=== PATIENT | male | born 1960 | race Caucasian/White ===

== ENCOUNTER 2018-07-29 05:37 | Day surgery (SDC) | payer OTHER, MEDICAID ==
[2018-07-29] VITALS (12 sets, daily range): BP systolic 97–120; BP diastolic 43–77; BMI 27.9
[~2018-07-29 05:37] MED LIST: AMOXICILLIN500 M1 PO; CLARITHROMYCIN PO; CYMBALTA60 MG PO; ENABLEX15 MG PO; HYDROCODON-ACE1 EA10 PO; PERCOCET 10-321 EAC1 PO; PREDNISONE10 MG PO; VIBRAMYCIN 100100 MG PO
[2018-07-29] MEDS ORDERED: TRAZODONE HCL150 MG PO (06:52)
[2018-07-29] MEDS ORDERED: DOXYCYCLINE HY100 M2 PO (06:54)
[2018-07-30] VITALS: BP 119/59
[2018-07-30 04:00] VITALS: BP 102/56
--- NOTE | 2018-07-30 07:54 | NUR ---
PT ALERT X 4. BREATH SOUNDS CLEAR BILAT. INCISION TO LEFT SIDE OF NECK. IV TO LEFT HAND, PATENT, DRESSING CDI. PT SITTING UP IN CHAIR. REPORTING PAIN OF 8/10. FAMILY AT BEDSIDE. BED LOW, CALL LIGHT IN REACH. NO OTHER NEEDS AT THIS TIME.
[2018-07-30 09:13] VITALS: BP 95/52
--- NOTE | 2018-07-30 13:04 | OP ---
PATIENT NAME: AURORA COSTELLO MEDICAL RECORD: [id number] :60 LOCATION:[id number] ADMISSION DATE: SURGEON: GOLDEN AGUILAR MD DATE OF OPERATION: 07/29/2018 DATE OF SERVICE: 07/29/2018 PREOPERATIVE DIAGNOSES: Cervical myelopathy at C4-5 secondary to disc herniation and osteophyte formation. POSTOPERATIVE DIAGNOSES: Cervical myelopathy at C4-C5 secondary to disc herniation and osteophyte formation. SURGEON: Golden Aguilar MD PRIMARY CARE PHYSICIAN: David Wilder MD PROCEDURES: Anterior cervical discectomy and fusion with removal of osteophytes and decompression of spinal cord at C4-C5. Zavation anterior cervical plate and screws. Lillie bone stem cells. PEEK interbody cage. Separate anterior cervical plate and screws from Zavation instrumentation. DESCRIPTION AND TECHNIQUE: After induction of general endotracheal anesthesia, the patient was positioned supine on the operating table. Neck was prepped and draped in the usual sterile fashion. Fluoroscopic x-ray and freer localized the C4-C5 interspace. After infiltration of 1:100,000 epinephrine with 1% lidocaine, transverse skin incision was carried out from the midline to the sternocleidomastoid muscle. The platysma was divided with Bovie cautery, and then using blunt and sharp dissection with Metzenbaum scissors, I proceeded in an avascular plane medial to the carotid sheath. The C4-C5 interspace was identified with fluoroscopic x-ray and a spinal needle. Longus colli muscles were elevated from bodies of C4 and C5. A self-retaining retractor was placed deep in longus colli muscles. [place] distracting pins were placed by the C4 and C5. The C4-C5 interspace was incised under distraction. The disc material was removed with pituitary rongeurs and curettes. Posteriorly, using a microscope and the Midas Russell drill, osteophytes were drilled away. The posterior longitudinal ligament was removed with Cloward rongeurs. Following this, the dura was decompressed well. A separate PEEK interbody cage was placed in the disc space under distraction. Prior to this, it was filled with Lillie bone stem cells. A separate anterior cervical plate and screws was used to span the C4-C5 interspace. Self-drilling screws were placed through the holes in the plate. Locking cams were tightened down over the screw heads. The wound was irrigated with copious amounts of Ancef irrigant solution. The platysma and subdermal layer was closed with interrupted 3-0 Vicryl suture. The skin was reapproximated with Steri-Strips and benzoin. A sterile dressing was applied to the wound. The patient was awakened in good condition and taken to recovery. All counts were reported as correct. Estimated blood loss was minimal. TRANSINT:[id number] Voice Confirmation ID: [id number] DOCUMENT ID: [id number] OPERATIVE REPORT [id number] AURORA COSTELLO JOHN MD at 1304 CC: [id number] DICTATION DATE: 07/29/18 1431 ERECTING ENGINEER: 07/29/18 1721 [facility] [address] [place] [address]
[2018-07-30 14:18] VITALS: BP 110/71
[2018-07-30] MEDS ORDERED: MEDROL DOSE PACK4 MG PO (15:27)
--- NOTE | 2018-07-30 16:10 | NUR ---
DISCHARGE PAPERWORK SIGNED, ALL QUESTIONS ANSWERED. IV TO LEFT HAND DC'D, TIP INTACT. TAKEN OUT BY WHEELCHAIR.
== END 2018-07-30 16:11 | disposition home or self-care (01) ==
LOC: D.OPS 05:37 → D.MS 05:37 → D.OPS 07:30 → D.PAN 07:30 → D.MS 11:12 → D.OPS 07-30 16:11
PROVIDERS: ATTEND Neurological Surgery
DX: M50.021 Cervical disc disorder at C4-C5 level with myelopathy (principal); M25.78 Osteophyte, vertebrae; Z01.812 Encounter for preprocedural laboratory examination

== ENCOUNTER 2018-08-15 16:42 | Emergency (ER) | payer OTHER, MEDICAID ==
[~2018-08-15] VITALS: Ht 175.3 cm; Wt 84.1 kg
[~2018-08-15 16:42] MED LIST changes: +DOXYCYCLINE HY100 M2 PO; +MEDROL DOSE PACK4 MG PO; +TRAZODONE HCL150 MG PO
[2018-08-15 16:46] VITALS: Ht 175.3 cm; Wt 84.1 kg
[2018-08-15] MEDS ORDERED: PERCOCET 10-321 EAC1 PO (16:49)
[2018-08-15] MEDS ORDERED: ZANAFLEX4 MG PO (16:49)
[2018-08-15 17:22] LABS: BASOPHILS 0.7 % (0-2); EOSINOPHILS 2.2 % (0-7); HEMATOCRIT 36.1 % (42.0-54.0); HEMOGLOBIN 12.2 g/dL (13.5-17.5); IMMATURE GRANULOCYTES 0.4 % (0-5); LYMPHOCYTES 30.1 % (15-50); MCH 33.6 pg (26.0-34.0); MCHC 33.8 g/dL (31.0-37.0); MCV 99.4 fL (80.0-100.0); NEUTROPHILS 57.6 % (40-80); PLATELET COUNT 201 10x3/uL (130-400); RBC 3.63 10x6/uL (4.20-6.10); RDW 12.5 % (11.5-14.5); WBC 5.6 10x3/uL (4.8-10.8)
[2018-08-15 18:08] LABS: ALBUMIN 3.2 g/dL (3.4-5.0); ALKALINE PHOSPHATASE 63 U/L (46-116); ALT (SGPT) 32 U/L (10-68); BILIRUBIN - TOTAL 0.44 mg/dL (0.2-1.3); CALC OSMOLALITY 282 mosm/kg (275-300); CALCIUM 9.2 mg/dL (8.5-10.1); CARBON DIOXIDE 30.1 mmol/L (21.0-32.0); CHLORIDE - SERUM 105 mmol/L (98-107); CREATININE - SERUM 1.2 mg/dL (0.6-1.3); GLUCOSE 79 mg/dL (74-106); POTASSIUM - SERUM 3.8 mmol/L (3.5-5.1); PROTEIN - SERUM 6.2 g/dL (6.4-8.2); SODIUM 142 mmol/L (136-145); UREA NITROGEN 15 mg/dL (7-18); eGFR NON AFRICAN AMERICAN 66 mL/min (90-120)
[2018-08-15 18:11] LABS: AMYLASE - SERUM 37 U/L (25-115); APTT 26.4 SECONDS (22.8-39.4); CKMB 0.9 U/L (0.0-3.6); CREATINE KINASE 38 UL (21-232); INR 1.03 (0.85-1.17); LIPASE 111 U/L (73-393); MAGNESIUM - SERUM 1.7 mg/dL (1.8-2.4); PRO BNP 31 pg/mL (0-125); TROPONIN-I < 0.017 ng/mL (0.000-0.060)
[2018-08-15] MEDS ORDERED: ZOFRAN ODT4 MG/UDTAB PO (18:53)
[2018-08-15] MEDS ORDERED: FLORASTOR250 MG PO (18:54)
[2018-08-15 20:33] VITALS: BP 106/63
== END 2018-08-15 20:33 | disposition home or self-care (01) ==
LOC: D.ER 16:42
PROVIDERS: Family Medicine
DX: R11.0 Nausea (principal); R53.81 Other malaise; R53.83 Other fatigue

== ENCOUNTER 2019-05-11 17:06 | Emergency (ER) | payer OTHER, MEDICAID ==
[~2019-05-11] VITALS: Ht 175.3 cm; Wt 84.1 kg
[~2019-05-11 17:06] MED LIST changes: +FLORASTOR250 MG PO; +ZANAFLEX4 MG PO; +ZOFRAN ODT4 MG/UDTAB PO
[2019-05-11 17:08] VITALS: Ht 175.3 cm; Wt 84.1 kg
[2019-05-11] MEDS ORDERED: NORCO-7.51 TAB PO (18:11)
[2019-05-11 18:23] VITALS: BP 129/84
== END 2019-05-11 18:23 | disposition home or self-care (01) ==
LOC: D.ER 17:06
DX: S22.31XA Fracture of one rib, right side, initial encounter for closed fracture (principal); X58.XXXA Exposure to other specified factors, initial encounter